=== PATIENT | female | born 1990 | race Two or more races ===

== ENCOUNTER 2018-12-04 07:23 | Outpatient (CLI) | payer OTHER | END 2018-12-04 11:01 | disposition home or self-care (01) | LOC: SONOGRAMA 07:23 | DX: N63.22 Unspecified lump in the left breast, upper inner quadrant (principal); N64.0 Fissure and fistula of nipple ==

== ENCOUNTER 2020-09-18 10:52 | Outpatient (CLI) | payer OTHER | END 2020-09-18 12:31 | disposition home or self-care (01) | LOC: SONOGRAMA 10:52 | PROVIDERS: ATTEND Pathology Anatomic Pathology & Clinical Pathology | DX: E04.1 Nontoxic single thyroid nodule (principal) ==